=== PATIENT | female | born 1980 | race Asian ===

== ENCOUNTER 2017-09-02 20:50 | Inpatient (IN) | payer SELFPAY ==
[~2017-09-02] VITALS: Ht 160 cm; Wt 71.7 kg
[2017-09-02] MEDS ORDERED: NALBUPHINE HCL 10 MG/ML AMP IVP PRN (21:45)
[2017-09-02] MEDS ORDERED: OXYTOCIN/NORMAL SALINE 1,000 ML IV SCH (21:45)
[2017-09-02] MEDS ORDERED: LR 1,000 ML IV SCH (21:45)
[2017-09-02] MEDS ORDERED: LR 1,000 ML IV ONE (21:45)
[2017-09-02] MEDS ORDERED: AMPICILLIN SODIUM 2 GM in NS 100 ML IV ONE (22:00)
[2017-09-02 22:10] LABS: BASOPHILS % (AUTO) 0.3 % (0.0-2.0); EOSINOPHILS # (AUTO) 0.1 K/uL (0.0-0.4); EOSINOPHILS % (AUTO) 0.6 % (0.0-4.0); HEMATOCRIT 36.2 % (36-48); HEMOGLOBIN 12.1 g/dL (12.0-16.0); LYMPHOCYTES # (AUTO) 1.9 K/uL (1.0-5.5); MEAN CORPUSCULAR HEMOGLOBIN 30 pg (27-31); MEAN CORPUSCULAR HGB CONC 33 % (32-36); MEAN CORPUSCULAR VOLUME 91 fL (79.0-98.0); MONOCYTES # (AUTO) 0.9 K/uL (0.0-1.0); MONOCYTES % (AUTO) 8.2 % (1.7-9.3); NEUTROPHILS # (AUTO) 7.6 K/uL (1.8-7.7); NEUTROPHILS % (AUTO) 72.9 % (40.0-70.0); PLATELET COUNT (AUTO) 162 K/uL (130-430); RED CELL DISTRIBUTION WIDTH 11.9 % (9.0-15.0); WHITE BLOOD COUNT (AUTO) 10.5 K/uL (4.8-10.8)
[2017-09-02] MEDS ORDERED: AMPICILLIN SODIUM 2 GM VIAL ONE (22:56)
[2017-09-02] MEDS ORDERED: fentaNYL CITRATE/PF 100 MCG/2 ML AMP ONE (22:58)
[2017-09-02] MEDS ORDERED: LR 500 ML IV ONE ×2 (23:39)
[2017-09-02] MEDS ORDERED: FENT2mCg/mL-ROPIVA0.2%/NS EPID 150 ML EP SCH (23:45)
[2017-09-03] MEDS ORDERED: AMPICILLIN SODIUM 1 GM in NS 50 ML IV SCH (02:00)
[2017-09-03] MEDS ORDERED: AMPICILLIN SODIUM 1 GM VIAL ONE (04:00)
[2017-09-03] MEDS ORDERED: OXYTOCIN/NORMAL SALINE 1,000 ML IV SCH (10:21)
[2017-09-03] MEDS ORDERED: OXYTOCIN/NORMAL SALINE 1,000 ML IV ONE (10:21)
[2017-09-03] MEDS ORDERED: HYDROCORTISONE 0.5%, 28.35 GM TOPICAL CREAM TP PRN (10:30)
[2017-09-03] MEDS ORDERED: GLYCERIN/WITCH HAZEL (TUCKS PADS) TP PRN (10:30)
[2017-09-03] MEDS ORDERED: RHO(D) IMMUNE GLOBULIN/MALTOSE 1500 UNITS/1.3 ML (WINHRO) IM PRN (10:30)
[2017-09-03] MEDS ORDERED: SENNOSIDES/DOCUSATE SODIUM 1 TAB TABLET(SENOKOT-S) PO PRN (10:30)
[2017-09-03] MEDS ORDERED: METHYLERGONOVINE MALEATE 0.2 MG TABLET PO PRN (10:30)
[2017-09-03] MEDS ORDERED: MEASLES,MUMPS&RUBELLA VACC/PF 12500 UNIT/0.5 ML VIAL SUBQ PRN (10:30)
[2017-09-03] MEDS ORDERED: DOCUSATE SODIUM 100 MG CAPSULE PO PRN (10:30)
[2017-09-03] MEDS ORDERED: LANOLIN 7 GM OINT. TP PRN (10:30)
[2017-09-03] MEDS ORDERED: DERMOPLAST SPRAY TP PRN (10:30)
[2017-09-03] MEDS ORDERED: ANUSOL 1 EA SUPP.RECT (PREPARATION H) RC PRN (10:30)
[2017-09-03] MEDS ORDERED: TEMAZEPAM 15 MG CAPSULE PO PRN (10:30)
[2017-09-03] MEDS ORDERED: HYDROcodone/ACETAMIN 5-325 MG TAB (NORCO/ VICODIN) PO PRN ×2 (10:30)
[2017-09-03] MEDS ORDERED: ACETAMINOPHEN 325 MG TABLET PO PRN (10:30)
[2017-09-03] MEDS ORDERED: ROPIVACAINE 0.2% (NAROPIN) PF SOLUTION 100 ML BOTTLE EP ONE ×2 (11:39→13:00)
[2017-09-03] MEDS: IBUPROFEN 600 MG TABLET PO SCH ×2 (12:48→23:40)
[2017-09-03 19:10] VITALS: BP_SYST 124
[2017-09-04] MEDS: IBUPROFEN 600 MG TABLET PO SCH ×2 (05:45→23:35)
[2017-09-04 09:04] LABS: HEMOGLOBIN 9.6 g/dL (12.0-16.0)
[2017-09-04] MEDS ORDERED: MILK OF MAGNESIA 30 ML UDC PO PRN (14:00)
[2017-09-05] MEDS: IBUPROFEN 600 MG TABLET PO SCH (06:15)
== END 2017-09-05 11:40 | disposition home or self-care (01) | DRG 775 ==
LOC: SPU 20:50
PROVIDERS: ADMIT Obstetrics & Gynecology; ATTEND Obstetrics & Gynecology
PROC: 10E0XZZ Delivery of Products of Conception, External Approach (ICD-10-PCS; principal; 2017-09-03)
PROC: 0KQM0ZZ Repair Perineum Muscle, Open Approach (ICD-10-PCS; 2017-09-03)
PROC: 3E0R3BZ Introduction of Anesthetic Agent into Spinal Canal, Percutaneous Approach (ICD-10-PCS; 2017-09-03)
PROC: 00HU33Z Insertion of Infusion Device into Spinal Canal, Percutaneous Approach (ICD-10-PCS; 2017-09-03)
DX: O70.1 Second degree perineal laceration during delivery (principal); Z37.0 Single live birth; Z3A.39 39 weeks gestation of pregnancy
CPT/HCPCS: 36415; 81002-TC; 85018-TC; 85025; 86886; 86900; 86901; J0290; J2590; J2795; J3010